=== PATIENT | male | born 1955 | race Caucasian/White ===

== ENCOUNTER 2016-08-28 10:08 | Emergency (ER) | payer BC ==
[~2016-08-28] VITALS: Ht 177.8 cm; Wt 78.0 kg
[2016-08-28 10:13] VITALS: BP 151/86; PULSE 91; RESP 14; TEMP 97.6; O2SAT 98
[2016-08-28] MEDS ORDERED: LOSA50TA PO (10:23)
[2016-08-28] MEDS ORDERED: LANTUS (10:23)
[2016-08-28] MEDS ORDERED: HYDR-3580 PO (10:23)
--- NOTE | 2016-08-28 11:00 | PD ---
HPI Chief Complaint: Musculoskeletal Complaint Time Seen by Provider: 10:46 Travel History International Travel<30 days: No Contact w/Intl Traveler<30days: No Traveled to known affect area: No History of Present Illness HPI This patient complains of pain in his right hip and right shoulder. 2 days ago he stumbled and fell and his garage and landed on the concrete floor. He struck his right hip and right shoulder. He's been ambulatory since. 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 No injury to head or neck. Symptoms severity is moderate. No alleviating factors. PFSH Past Medical History Diabetes: Yes Patient Takes Glucophage: No Hypertension: Yes Social History Alcohol Use: No Tobacco Use: No Substance Use: No Allergies-Medications (Allergen,Severity, Reaction): Coded Allergies: No Known Allergies (Unverified , 08/28/16) Reported Meds & Prescriptions Reported Meds & Active Scripts Active Reported Hydrocodone-Acetaminophen 7.5-325 mg Tab 1 Tab PO Q4H PRN Losartan (Losartan Potassium) 50 Mg Tab 50 Mg PO DAILY [Lantus 70/30] Unknown Dose Review of Systems General / Constitutional: No: Fever Eyes: No: Visual changes HENT: No: Headaches Cardiovascular: No: Chest Pain or Discomfort Respiratory: No: Shortness of Breath Gastrointestinal: No: Abdominal Pain Genitourinary: No: Dysuria Musculoskeletal: Positive: Arthralgias, Limited ROM, Pain Skin: No Rash Neurologic: No: Weakness Psychiatric: No: Depression Endocrine: No: Polydipsia Hematologic/Lymphatic: No: Easy Bruising Physical Exam Narrative GENERAL: Well-nourished, well-developed patient with shoulder and hip pain Right shoulder: Has tenderness at the acromioclavicular joint Is some tenderness to the musculature around the shoulder. Right arm neurovascularly intact NECK: Symmetrical appearance, midline trachea. No mass or crepitus. Thyroid without enlargement, tenderness, or mass. Psych: Normal mood and affect. Normal insight and judgment. SKIN: Focused skin assessment reveals no rash or ulcers. Skin is warm and dry. Palpation shows no induration or nodules. Right hip has good range of motion. There is a well-healed surgical scar. There is tenderness when palpating the sacral area without instability of the pelvis Data Data Last Documented VS Vital Signs Date Time Temp Pulse Resp B/P Pulse Ox O2 Delivery O2 Flow Rate FiO2 08/28/16 10:13 97.6 91 14 151/86 98 Room Air Orders Shoulder, Complete (>2vws) (08/28/16 ) Hip, Lat Only W Ap Pelvis (08/28/16 ) MDM Medical Decision Making Medical Screen Exam Complete: Yes Emergency Medical Condition: Yes Medical Record Reviewed: Yes Differential Diagnosis Pelvic fracture, hip dislocation, shoulder fracture Narrative Course I have reviewed the patient's electronic medical record. I reviewed his right shoulder x-rays which are normal I reviewed his right hip x-ray which is normal I reviewed his pelvis x-ray which is normal Patient has contusions but no fracture or dislocation. Stable for outpatient follow-up Diagnosis Primary Impression: Contusion, multiple sites Additional Instructions: The patient was advised to follow up with their physician and return if they worsen. Med/Other Pt SpecificInfo: Other Disposition: 01 DISCHARGE HOME Condition: Stable Chin Rivas MD Aug 28, 2016 11:00
--- NOTE | 2016-08-28 11:44 | RADHPO ---
EXAM DATE/TIME: 08/28/2016 11:25 [facility] COMPARISON: No previous studies available for comparison. INDICATIONS : Right shoulder pain after fall. MEDICAL HISTORY : None. SURGICAL HISTORY : Right shoulder scope ENCOUNTER: Initial ACUITY: 3 days PAIN SCORE: 10/10 LOCATION: Right shoulder FINDINGS: Multiple view examination of the right shoulder demonstrates no evidence of fracture or dislocation. The glenohumeral and acromioclavicular joints are maintained. There is normal range of motion betwe en internal and external rotation. Bony mineralization is normal. CONCLUSION: Negative for an acute process. Reji Lee MD FACR on August 28, 2016 at 11:41 Board Certified Radiologist. This report was verified electronically.
--- NOTE | 2016-08-28 11:45 | RADHPO ---
EXAM DATE/TIME: 08/28/2016 11:20 [facility] COMPARISON: No previous studies available for comparison. INDICATIONS : Right hip pain after fall. MEDICAL HISTORY : None. SURGICAL HISTORY : Right total hip replacement ENCOUNTER: Initial ACUITY: 3 days PAIN SCORE: 10/10 LOCATION: Right posterior hip FINDINGS: A lateral view of the right hip with AP pelvis was obtained. No definite fractures, dislocations, ly tic or sclerotic there is a right total hip arthroplasty in place. Upper thoracic components are in n ormal anatomic alignment. No monika-component lucency to suggest loosening. Osseous structures are inta ct without evidence for acute bony fracture. Multiple phleboliths are noted in the pelvis. Soft tissu es are otherwise unremarkable. CONCLUSION: 1. Right hip arthroplasty in anatomic alignment without evidence for hardware failure or acute bony f racture. Marcial Gonzalez MD on August 28, 2016 at 11:40 Board Certified Radiologist. This report was verified electronically.
== END 2016-08-28 12:21 | disposition home or self-care (01) ==
LOC: PHEFT 10:08
DX: T14.8 Other injury of unspecified body region (principal); M25.551 Pain in right hip; M25.511 Pain in right shoulder; W01.0XXA Fall on same level from slipping, tripping and stumbling without subsequent striking against object, initial encounter; Y92.008 Other place in unspecified non-institutional (private) residence as the place of occurrence of the external cause
CPT/HCPCS: 73030; 73501; 99284

== ENCOUNTER 2016-10-09 15:02 | Emergency (ER) | payer BC ==
[~2016-10-09] VITALS: Ht 177.8 cm; Wt 76.6 kg
[~2016-10-09 15:02] MED LIST: HYDR-3580 PO; LANTUS; LOSA50TA PO
[2016-10-09 15:08] VITALS: BP 147/80; PULSE 108; RESP 16; TEMP 97.5; O2SAT 98
[2016-10-09] MEDS ORDERED: AMIT150T PO (15:17)
[2016-10-09] MEDS ORDERED: NOVO7030P2 SQ (15:17)
--- NOTE | 2016-10-09 16:01 | PD ---
HPI Chief Complaint: Medication Refill Request Time Seen by Provider: 15:40 Travel History International Travel<30 days: No Contact w/Intl Traveler<30days: No Traveled to known affect area: No History of Present Illness HPI 61-year-old male presents to the emergency room requesting medication refill of Lortab. States he is in between pain management physicians and his next appointment is not for another 2 weeks. Patient is requesting medication to fill the gap between now and then. He called his pain management physician who recommended he come to the emergency room. 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 He has been on gabapentin and tried other methods of pain management without any relief in symptoms. States his pain is keeping him from sleeping and working. History Past Medical Histgory Tetanus Vaccination: < 5 Years Social History Alcohol Use: No Tobacco Use: No Allergies-Medications (Allergen,Severity, Reaction): Coded Allergies: No Known Allergies (Unverified , 10/09/16) Reported Meds & Prescriptions Reported Meds & Active Scripts Active Reported Amitriptyline (Amitriptyline HCl) 150 Mg Tab 150 Mg PO HS Novolin 70-30 Inj (Insulin Human Isoph/Insulin Regular) 1,000 Unit/10 Ml Vial 1 Units SQ DIRECTED Hydrocodone-Acetaminophen 7.5-325 mg Tab 1 Tab PO Q4H PRN Losartan (Losartan Potassium) 50 Mg Tab 50 Mg PO DAILY Data Data Last Documented VS Vital Signs Date Time Temp Pulse Resp B/P Pulse Ox O2 Delivery O2 Flow Rate FiO2 10/09/16 15:08 97.5 108 16 147/80 98 MDM Medical Screen Exam Complete: Yes Emergency Medical Condition: No Differential Diagnosis Medication refill Narrative Course 61-year-old male presents to the emergency room requesting Lortab refill. States he is in between pain management physicians and his next appointment is not for another 2 weeks. Patient is requesting medication to fill the gap between now and then. He called his pain management physician who recommended he come to the emergency room. Patient was given #120 (30 day supply) Lortab on 09/05/2016 and ran out of them 3 days ago. ors only shows prescriptions for Lortab in Jul, 2016, November,, October,, and September,. 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 He has been on gabapentin and tried other methods of pain management without any relief in symptoms. States his pain is keeping him from sleeping and working. He is ambulatory. Patient was informed that it is against emergency room policy to prescribe narcotic pain medication for chronic conditions. There are no urgent or emergent medical conditions at this time. A medical screening exam was performed: At the time of evaluation the presenting medical condition was determined not to be of an emergent nature. The patient was given the option of receiving additional care, but declined. Patient was given options for additional community resources from which to obtain care. The Patient Has Been advised to seek medical attention for their presenting complaint. The patient has been advised to return to the ER at any time if an emergent condition develops. Primary Impression: Encounter for medical screening examination Disposition: DISCHARGE HOME Condition: Stable Laurel Martínez Oct 09, 2016 16:01
== END 2016-10-09 15:54 | disposition left against medical advice (07) ==
LOC: PHEFT 15:02
DX: G89.29 Other chronic pain (principal); Z76.0 Encounter for issue of repeat prescription
CPT/HCPCS: 99281

== ENCOUNTER 2017-04-17 21:10 | Emergency (ER) | payer BC, OTHER ==
[~2017-04-17 21:10] MED LIST changes: +AMIT150T PO; -LANTUS; +NOVO7030P2 SQ
[2017-04-17 22:22] VITALS: BP 175/86; PULSE 94; RESP 18; O2SAT 100
[2017-04-17] MEDS ORDERED: HALOPERIDOL LACTATE 5 MG/ML AMP IM ONE (23:15)
[2017-04-17] MEDS ORDERED: LORazepam 2 MG/ML VIAL IM ONE (23:15)
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
[2017-04-18 02:20] LABS: AUTOMATED NEUTROPHIL # 5.5 TH/MM3 (1.8-7.7); BASOPHIL % 0.5 % (0.0-2.0); EOSINOPHIL # 0.4 TH/MM3 (0-0.4); EOSINOPHIL % 4.3 % (0.0-4.0); HEMATOCRIT 33.4 % (39.0-51.0); HEMOGLOBIN 11.5 GM/DL (13.0-17.0); LYMPH % 21.9 % (9.0-44.0); LYMPHOCYTE # 1.9 TH/MM3 (1.0-4.8); MEAN CORPUSCULAR HEMOGLOBIN 28.4 PG (27.0-34.0); MEAN CORPUSCULAR HGB CONC 34.3 % (32.0-36.0); MEAN PLATELET VOLUME 6.5 FL (7.0-11.0); MONO % 8.2 % (0.0-8.0); MONOCYTE # 0.7 TH/MM3 (0-0.9); NEUT % 65.1 % (16.0-70.0); PLATELET COUNT 348 TH/MM3 (150-450); RED BLOOD COUNT 4.03 MIL/MM3 (4.50-5.90); RED CELL DISTRIBUTION WIDTH 13.1 % (11.6-17.2); WHITE BLOOD COUNT 8.5 TH/MM3 (4.0-11.0)
[2017-04-18 02:52] LABS: ACETAMINOPHEN LESS THAN 2.0 MCG/ML (10.0-30.0); ALBUMIN 3.1 GM/DL (3.4-5.0); ALT (GPT) 14 U/L (12-78); AST (GOT) 18 U/L (15-37); BICARBONATE 27.9 MEQ/L (21.0-32.0); BLOOD UREA NITROGEN 18 MG/DL (7-18); CALCIUM 8.7 MG/DL (8.5-10.1); CHLORIDE 108 MEQ/L (98-107); CREATININE 0.95 MG/DL (0.60-1.30); GLOMERULAR FILTRATION RATE 81 ML/MIN (>89); GLUCOSE,RANDOM 76 MG/DL (74-106); SODIUM (NA) 141 MEQ/L (136-145)
[2017-04-18 02:58] LABS: ALKALINE PHOSPHATASE 103 U/L (45-117); TOTAL BILIRUBIN ADULT 0.3 MG/DL (0.2-1.0); TOTAL PROTEIN 7.3 GM/DL (6.4-8.2)
[2017-04-18 04:54] VITALS: BP 140/64; PULSE 85; RESP 17; TEMP 98.1; O2SAT 100
[2017-04-18 06:18] VITALS: BP 152/71; PULSE 81; RESP 18; O2SAT 97
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
--- NOTE | 2017-04-18 12:07 | PD ---
Physical Exam Time Seen by Provider: 12:[address] Jones has evaluated the patient, lifted Ross act and cleared the patient was discharged. His family is picking him up. Data Data Last Documented VS Vital Signs Date Time Temp Pulse Resp B/P (MAP) Pulse Ox O2 Delivery O2 Flow Rate FiO2 04/18/17 06:18 81 18 152/71 (98) 97 Room Air 04/18/17 04:54 98.1 Orders Orders Complete Blood Count With Diff (04/17/17 22:47) Comprehensive Metabolic Panel (04/17/17 22:47) Thyroid Stimulating Hormone (04/17/17 22:47) Psych Screen (04/17/17 22:47) Drug Screen, Random Urine (04/17/17 22:47) Alcohol (Ethanol) (04/17/17 22:47) Salicylates (Aspirin) (04/17/17 22:47) Tylenol (Acetaminophen) (04/17/17 22:47) Haloperidol Inj (Haldol Inj) (04/17/17 23:15) Lorazepam Inj (Ativan Inj) (04/17/17 23:15) Restraints Non-Violent MARY LOU.Q3H (04/17/17 23:11) Diet Regular Basic (04/18/17 Breakfast) Diet Regular Basic (04/18/17 Lunch) Labs Laboratory Tests Test 04/18/17 00:00 04/18/17 01:45 Urine Opiates Screen NEG Urine Barbiturates Screen NEG Urine Amphetamines Screen NEG Urine Benzodiazepines Screen NEG Urine Cocaine Screen NEG Urine Cannabinoids Screen POS White Blood Count 8.5 TH/MM3 Red Blood Count 4.03 MIL/MM3 Hemoglobin 11.5 GM/DL Hematocrit 33.4 % Mean Corpuscular Volume 83.0 FL Mean Corpuscular Hemoglobin 28.4 PG Mean Corpuscular Hemoglobin Concent 34.3 % Red Cell Distribution Width 13.1 % Platelet Count 348 TH/MM3 Mean Platelet Volume 6.5 FL Neutrophils (%) (Auto) 65.1 % Lymphocytes (%) (Auto) 21.9 % Monocytes (%) (Auto) 8.2 % Eosinophils (%) (Auto) 4.3 % Basophils (%) (Auto) 0.5 % Neutrophils # (Auto) 5.5 TH/MM3 Lymphocytes # (Auto) 1.9 TH/MM3 Monocytes # (Auto) 0.7 TH/MM3 Eosinophils # (Auto) 0.4 TH/MM3 Basophils # (Auto) 0.0 TH/MM3 CBC Comment DIFF FINAL Differential Comment Blood Urea Nitrogen 18 MG/DL Creatinine 0.95 MG/DL Random Glucose 76 MG/DL Total Protein 7.3 GM/DL Albumin 3.1 GM/DL Calcium Level 8.7 MG/DL Alkaline Phosphatase 103 U/L Aspartate Amino Transf (AST/SGOT) 18 U/L Alanine Aminotransferase (ALT/SGPT) 14 U/L Total Bilirubin 0.3 MG/DL Sodium Level 141 MEQ/L Potassium Level 3.5 MEQ/L Chloride Level 108 MEQ/L Carbon Dioxide Level 27.9 MEQ/L Anion Gap 5 MEQ/L Estimat Glomerular Filtration Rate 81 ML/MIN Thyroid Stimulating Hormone 3rd Gen 1.480 uIU/ML Salicylates Level LESS THAN 1.7 MG/DL Acetaminophen Level LESS THAN 2.0 MCG/ML Ethyl Alcohol Level LESS THAN 3 MG/DL MDM Supervised Visit with JUAN M: No Narrative Course Dr. Jones has evaluated the patient, lifted Vandana stock and cleared the patient was discharged. His family is picking him up. Patient contracts safety. Denies suicidal or homicidal ideations. Patient will be provided community resource packet to [facility] for follow-up. Has friends and family for support. Patient was medically cleared by alternate provider prior to psych screening. Patient has been evaluated by psychiatry and and is now cleared for discharge. Diagnosis Primary Impression: Adjustment disorder with mixed disturbance of emotions and conduct Referrals: [facility] (Out patient) [facility] Primary Care Physician Psychiatrist [facility] Patient Instructions: General Instructions, Mood Disorders (ED) Additional Instruction: Contract safety to your self and others Follow-up with psychiatry Follow-up with primary care provider Follow-up with Francisco Lucas Return to the emergency department immediately with worsening of symptoms Med/Other Pt SpecificInfo: No Change to Meds, No Meds Exist/No RX given Disposition: 01 DISCHARGE HOME Condition: Stable Candace Young Apr 18, 2017 12:07
== END 2017-04-18 12:28 | disposition home or self-care (01) ==
LOC: NEPJ 21:10
DX: F43.25 Adjustment disorder with mixed disturbance of emotions and conduct (principal); E11.40 Type 2 diabetes mellitus with diabetic neuropathy, unspecified; I10 Essential (primary) hypertension; Z98.84 Bariatric surgery status; Z79.899 Other long term (current) drug therapy
CPT/HCPCS: 80053; 80307; 84443; 85025; 96372; 99284; J1630; J2060

== ENCOUNTER 2017-12-08 18:07 | Observation (INO) ==
[2017-12-08] MEDS ORDERED: Sod Chloride 0.9% Inj 1,000 ML IV.CONT SCH (19:00)
[2017-12-08 19:26] LABS: Chloride 103 meq/L (98-107); Sodium 137 meq/L (136-145)
[2017-12-08 19:28] LABS: Calcium 8.8 mg/dL (8.5-10.1)
[2017-12-08 19:29] LABS: Anion Gap 10 meq/L (5-15); Blood Urea Nitrogen 22 mg/dL (7-18); Carbon Dioxide 23.7 meq/L (21.0-32.0); Glucose,Random 161 mg/dL (74-106)
[2017-12-08 19:31] LABS: Activated Partial Thrombo Time 29.9 sec (24.3-30.1); INR 1.1 Ratio; Prothrombin Time 11.3 sec (9.8-11.6)
[2017-12-08 19:32] LABS: Glomerular Filtration Rate 52 mL/min (>89)
[2017-12-08 19:35] LABS: Creatine Kinase 161 U/L (39-308)
[2017-12-08 19:41] LABS: Baso # (Auto) 0.1 th/mm3 (0.0-0.2); Baso % (Auto) 0.4 % (0.0-2.0); Eos # (Auto) 0.1 th/mm3 (0.0-0.4); Eos % (Auto) 0.7 % (0.0-4.0); Hematocrit 33.6 % (39.0-51.0); Hemoglobin 11.2 gm/dL (13.0-17.0); Lymph # (Auto) 1.1 th/mm3 (1.0-4.8); Mean Corpuscular HGB Conc 33.3 % (32.0-36.0); Mean Corpuscular Hemoglobin 27.7 pg (27.0-34.0); Mean Platelet Volume 7.3 fL (7.0-11.0); Mono # (Auto) 0.9 th/mm3 (0.0-0.9); Mono % (Auto) 6.7 % (0.0-8.0); Neut # (Auto) 10.9 th/mm3 (1.8-7.7); Neut % (Auto) 84.2 % (16.0-70.0); Platelet Count 321 th/mm3 (150-450); Red Blood Count 4.05 mil/mm3 (4.50-5.90); Red Cell Distribution Width 12.2 % (11.6-17.2); White Blood Count 13.1 th/mm3 (4.0-11.0)
--- NOTE | 2017-12-08 21:43 | ED ---
HPI General Chief complaint: Neuro Symptoms/Deficit Stated complaint: frequent fall X2days Time Seen by Provider: 12/08/17 18:24 Source: patient and family Mode of arrival: ambulatory Limitations: no limitations History of Present Illness HPI narrative: Patient is a 62-year-old male, past medical history significant for hypertension, diabetes, neuropathy with chronic pain to his left ankle, who presents with complaint of intermittent spells of slurred speech with confusion , and falls that then resolve. He states that over the last several days he has fallen more than 7 times oftentimes hitting his head. His last "spell" happened several hours ago. He has not had loss of consciousness. No neck pain nor new back pain. No nausea nor vomiting. No fever nor chills. No chest pain or dyspnea. No lightheadedness. Onset (ago): day(s) Severity: moderate Relieving factors: none Exacerbating factors: none Associated symptoms: confusion Treatments prior to arrival: none Related Data Home Medications Medication Instructions Recorded Confirmed Novolin 70/30 U-100 Insulin 12/08/17 amitriptyline 150 mg PO HS 12/08/17 12/08/17 gabapentin 300 mg PO HS 12/08/17 12/08/17 losartan-hydrochlorothiazide 50 mg PO DAILY 12/08/17 12/08/17 tramadol 50 mg PO BID 12/08/17 12/08/17 Allergies Allergy/AdvReac Type Severity Reaction Status Date / Time No Known Allergies Allergy Unverified 12/08/17 18:20 Review of Systems ROS: all other systems reviewed are negative [facility] Medical History Medical History Chronic pain (Acute) Diabetes mellitus (Acute) Hypertension (Acute) Neuropathic diabetic ulcer of foot (Acute) Neuropathic pain of both feet (Acute) Surgical History Surgical History History of bariatric surgery (Acute) History of hip surgery (Acute) Social History Social History Substance History: Active Abuse Second Hand Smoke Exposure: Yes Smoking Status: Never smoker How Often Do You Have a Drink Containing Alcohol: Never Recent Travel in [facility] within the Last 8 Weeks: No Recent Out of Country Travel within the Last 8 Weeks: No Substance Abuse Detail Marijuana: Substance Use Status: Active Route Used Substance Abuse: Inhalation Last Used: DAILY Reason for Use: Calm Down and Sleep Immunization History Tetanus Immunization: Unsure Hx Influenza Vaccine This Season: No Exam Narrative Exam Narrative: GENERAL: Well-appearing male in no acute distress SKIN: Focused skin assessment warm/dry. No rashes. HEAD: Atraumatic. Normocephalic. EYES: Pupils equal and round. No scleral icterus. No injection or drainage. ENT: No nasal bleeding or discharge. Mucous membranes pink and moist. NECK: Trachea midline. No JVD. CARDIOVASCULAR: Regular rate and rhythm. No murmur appreciated. Intact and equal peripheral pulses. RESPIRATORY: No accessory muscle use. Clear to auscultation. Breath sounds equal bilaterally. GASTROINTESTINAL: Abdomen soft, non-tender, nondistended. Hepatic and splenic margins not palpable. MUSCULOSKELETAL: No obvious deformities. No clubbing. No cyanosis. No edema. NEUROLOGICAL: Awake and alert. No obvious cranial nerve deficits. Motor within normal limits. Normal sensation. No ataxia. No pronator drift. Normal speech. PSYCHIATRIC: Appropriate mood and affect; insight and judgment normal. Course Initial Documented Vital Signs Temperature 99.6 F 12/08/17 18:20 Pulse Rate 100 H 12/08/17 18:20 Respiratory Rate 16 12/08/17 18:20 Blood Pressure 153/74 H 12/08/17 18:20 Pulse Oximetry 98 12/08/17 18:20 Last Documented Vital Signs Temperature 99.6 F 12/08/17 18:20 Pulse Rate 75 12/08/17 22:18 Respiratory Rate 16 12/08/17 22:18 Blood Pressure 158/67 H 12/08/17 22:18 Pulse Oximetry 96 12/08/17 22:18 NIH Stroke Scale NIH Stroke Scale Level of Consciousness: 0-Alert Orientation Questions: 0-Answers both correct Responds to Commands: 0-Both tasks correct Gaze Eye Movement: 0-Horizontal movement WNL Visual Brown: 0-No visual field defect Facial Movement: 0-Normal Motor Functions Arm LEFT: 0-No drift Motor Functions Arm RIGHT: 0-No drift Motor Functions Leg LEFT: 0-No drift Motor Functions Leg RIGHT: 0-No drift Limb Ataxia: 0-No ataxia Sensory Loss: 0-No sensory loss Best Language: 0-Normal Articulation: 0-Normal Extinction or Inattention Sensory: 0-Absent Total: 0 Medical Decision Making MDM Narrative Medical decision making narrative: Patient is a 8-year-old male who presents with complaint of intermittent slurred speech with confusion and frequent falls. He is not having any symptoms while in the emergency department and appears well. Labs reveal a creatinine of 1.4 which is increased from baseline but are otherwise unremarkable. CT head does not show any acute intracranial injury. I spoke with the patient and Dr. Boyle, hospitalist on-call, who agreed to an admission for a TIA workup. Medical Screen Exam Complete: Yes Emergency Medical Condition: Yes Differential Diagnosis Differential Diagnosis: Differential diagnosis includes but is not limited to vertebrobasilar syndrome, transient ischemic attack, dysrhythmia. Medical Records Medical records reviewed: Yes I reviewed the patient's medical records. Lab Data Lab results reviewed: Yes I reviewed the patient's lab results. Result diagrams: 12/08/17 19:05 12/08/17 19:05 Lab Results 12/08/17 12/08/17 12/08/17 Range/Units 18:39 19:05 19:05 CBC w Diff Auto diff final WBC 13.1 H (4.0-11.0) th/mm3 RBC 4.05 L (4.50-5.90) mil/mm3 Hgb 11.2 L (13.0-17.0) gm/dL Hct 33.6 L (39.0-51.0) % MCV 83.0 (80.0-100.0) fL MCH 27.7 (27.0-34.0) pg MCHC 33.3 (32.0-36.0) % RDW 12.2 (11.6-17.2) % Plt Count 321 (150-450) th/mm3 MPV 7.3 (7.0-11.0) fL Neut % (Auto) 84.2 H (16.0-70.0) % Lymph % (Auto) 8.0 L (9.0-44.0) % [place] % (Auto) 6.7 (0.0-8.0) % Eos % (Auto) 0.7 (0.0-4.0) % Baso % (Auto) 0.4 (0.0-2.0) % Neut # (Auto) 10.9 H (1.8-7.7) th/mm3 Lymph # (Auto) 1.1 (1.0-4.8) th/mm3 [place] # (Auto) 0.9 (0.0-0.9) th/mm3 Eos # (Auto) 0.1 (0.0-0.4) th/mm3 Baso # (Auto) 0.1 (0.0-0.2) th/mm3 WBC Differential . Differential Comment . PT 11.3 (9.8-11.6) sec INR 1.1 Ratio APTT 29.9 (24.3-30.1) sec Sodium (136-145) meq/L Potassium (3.5-5.1) meq/L Chloride (98-107) meq/L Carbon Dioxide (21.0-32.0) meq/L Anion Gap (5-15) meq/L BUN (7-18) mg/dL Creatinine (0.60-1.30) mg/dL Estimated GFR (>89) mL/min POC Glucose 177 H (68-110) mg/dl Random Glucose (74-106) mg/dL Calcium (8.5-10.1) mg/dL Total Creatine Kinase (39-308) U/L CK-MB (CK-2) (0.5-3.6) ng/mL Troponin I (0.02-0.05) ng/mL 12/08/17 12/08/17 Range/Units 19:05 19:31 CBC w Diff WBC (4.0-11.0) th/mm3 RBC (4.50-5.90) mil/mm3 Hgb (13.0-17.0) gm/dL Hct (39.0-51.0) % MCV (80.0-100.0) fL MCH (27.0-34.0) pg MCHC (32.0-36.0) % RDW (11.6-17.2) % Plt Count (150-450) th/mm3 MPV (7.0-11.0) fL Neut % (Auto) (16.0-70.0) % Lymph % (Auto) (9.0-44.0) % [place] % (Auto) (0.0-8.0) % Eos % (Auto) (0.0-4.0) % Baso % (Auto) (0.0-2.0) % Neut # (Auto) (1.8-7.7) th/mm3 Lymph # (Auto) (1.0-4.8) th/mm3 [place] # (Auto) (0.0-0.9) th/mm3 Eos # (Auto) (0.0-0.4) th/mm3 Baso # (Auto) (0.0-0.2) th/mm3 WBC Differential Differential Comment PT (9.8-11.6) sec INR Ratio APTT (24.3-30.1) sec Sodium 137 (136-145) meq/L Potassium 4.0 (3.5-5.1) meq/L Chloride 103 (98-107) meq/L Carbon Dioxide 23.7 (21.0-32.0) meq/L Anion Gap 10 (5-15) meq/L BUN 22 H (7-18) mg/dL Creatinine 1.40 H (0.60-1.30) mg/dL Estimated GFR 52 L (>89) mL/min POC Glucose 158 H (68-110) mg/dl Random Glucose 161 H (74-106) mg/dL Calcium 8.8 (8.5-10.1) mg/dL Total Creatine Kinase 161 (39-308) U/L CK-MB (CK-2) Less than 1.0 (0.5-3.6) ng/mL Troponin I Less than 0.02 L (0.02-0.05) ng/mL Imaging Data Attestation: I personally reviewed and interpreted this imaging study as follows : My impression: No acute intracranial process. Radiologist's impression: Head CT 12/08/17 18:52 CONCLUSION: 1. No acute intracranial abnormalities. . Ankle X-Ray 12/08/17 19:10 CONCLUSION: Remote healed fractures of the distal tibia and fibula. No acute fracture identified. ECG Data EKG Prior to Arrival: No Attestation: I personally reviewed and interpreted this ECG as follows: (Sinus rhythm at a rate of [address] or T-wave changes.) Discharge Plan Discharge Disposition Patient Disposition: 30 Still Patient Discharge Condition Condition: Stable Discharge Details Diagnosis: Transient cerebral ischemia Physicians Team ED Provider: Robyn Ross Primary Care Provider: UNKNOWN, Attending Provider: Karla Boyle Status ED Status: Admitted Observation Patient
[2017-12-08] MEDS ORDERED: Dextrose 50% in Water 50 ML Vial IV.PUSH PRN (21:51)
[2017-12-08 23:42] LABS: Bilirubin,Urine Negative (Negative); Clarity,Urine Clear (Clear); Color,Urine Yellow (Yellw/Straw); Glucose,Urine (UA) Negative (Negative); Leukocyte Esterase,Urine Negative (Negative); Nitrite,Urine Negative (Negative); Specific Gravity,Urine Less/Equal 1.005 (1.002-1.035); Urobilinogen,Urine 0.2 mg/dL (Less than 2)
[2017-12-08 23:46] LABS: RBC,Urine 0-3 /hpf (0-3); Squamous Epithelial Cell,Urine 0-5 /hpf (0-5); WBC,Urine 0-5 /hpf (0-5)
[2017-12-09] MEDS: Heparin - SQ 10,000 UNITS/ML Vial SQ SCH ×4 (00:17→21:30)
[2017-12-09] MEDS: Sod Chloride 0.9% Inj 1,000 ML IV.CONT SCH ×3 (00:21→19:02)
[2017-12-09] MEDS ORDERED: Gabapentin 300 MG Capsule PO SCH ×2 (00:45→12:00)
[2017-12-09] MEDS: Insulin NovoLOG Aspart Correctional Sugar Inj SQ SCH ×5 (03:08→21:27)
[2017-12-09 07:08] LABS: Calcium 8.6 mg/dL (8.5-10.1)
[2017-12-09 07:09] LABS: Carbon Dioxide 27.2 meq/L (21.0-32.0)
--- NOTE | 2017-12-09 07:42 | ECG ---
Date Performed: 12/08/2017 Time Performed: 18:34:59 PTAGE: 62 years EKG: Sinus rhythm NORMAL ECG NO PREVIOUS TRACING DOCTOR: Beronica Weber Interpretating Date/Time 12/09/2017 07:40:16
[2017-12-09] MEDS ORDERED: Aspirin 325 MG Tablet PO SCH (09:00)
[2017-12-09 10:19] LABS: Chol/HDL Ratio 2.98 Ratio; HDL Cholesterol 49.5 mg/dL (40.0-60.0)
[2017-12-09 10:52] LABS: Hemoglobin A1c 7.9 % (4.3-6.0)
[2017-12-09] MEDS: Gabapentin 300 MG Capsule PO SCH ×2 (12:04→17:30)
[2017-12-09] MEDS ORDERED: LOSARTAN HYDROCHLOROTHIAZIDE PO SCH (14:00)
[2017-12-09] MEDS ORDERED: Gadobutrol PF 7.5 MMOL/7.5 ML Vial (for RAD) IV.SIG ONE (14:30)
[2017-12-09 20:39] LABS: C-Reactive Protein 17.7 mg/dL (0.00-0.30)
[2017-12-10] MEDS: Insulin NovoLOG Aspart Correctional Sugar Inj SQ SCH ×5 (03:25→21:40)
[2017-12-10 06:32] LABS: Potassium 3.8 meq/L (3.5-5.1)
[2017-12-10 06:33] LABS: Baso % (Auto) 0.4 % (0.0-2.0); Eos # (Auto) 0.4 th/mm3 (0.0-0.4); Eos % (Auto) 4.3 % (0.0-4.0); Hematocrit 30.2 % (39.0-51.0); Hemoglobin 9.9 gm/dL (13.0-17.0); Lymph # (Auto) 1.5 th/mm3 (1.0-4.8); Lymph % (Auto) 17.2 % (9.0-44.0); Mean Corpuscular HGB Conc 32.9 % (32.0-36.0); Mean Corpuscular Hemoglobin 27.5 pg (27.0-34.0); Mean Corpuscular Volume 83.5 fL (80.0-100.0); Mean Platelet Volume 6.9 fL (7.0-11.0); Mono # (Auto) 0.8 th/mm3 (0.0-0.9); Mono % (Auto) 9.1 % (0.0-8.0); Neut # (Auto) 5.9 th/mm3 (1.8-7.7); Platelet Count 374 th/mm3 (150-450); Red Blood Count 3.61 mil/mm3 (4.50-5.90); Red Cell Distribution Width 12.2 % (11.6-17.2); White Blood Count 8.6 th/mm3 (4.0-11.0)
[2017-12-10] MEDS: Heparin - SQ 10,000 UNITS/ML Vial SQ SCH ×3 (06:34→21:37)
[2017-12-10 06:35] LABS: Calcium 8.3 mg/dL (8.5-10.1)
[2017-12-10 06:36] LABS: Carbon Dioxide 28.4 meq/L (21.0-32.0); Magnesium 1.7 mg/dL (1.5-2.5)
[2017-12-10] MEDS: Gabapentin 300 MG Capsule PO SCH ×3 (09:00→17:21)
[2017-12-10] MEDS ORDERED: Azithromycin 250 MG Tablet PO ONE (10:58)
[2017-12-10] MEDS ORDERED: RESP: Albuterol Concentrated 2.5 MG/0.5 ML Neb NEB PRN (11:02)
--- NOTE | 2017-12-10 12:19 | ECHRPT ---
Indication: CVA/TIA CONCLUSIONS The left ventricular systolic function is normal with an estimated ejection fraction in the range of 55-60%. Trace mitral valve regurgitation. Unable to determine if bileaflet or trileaflet aortic valve. No aortic valve stenosis or regurgitati on. There is trace tricuspid valve regurgitation. BP: / HR: Rhythm: Sinus MEASUREMENTS (Male / Female) Normal Values Technical Quality:Fair 2D ECHO LV Diastolic Diameter PLAX 4.3 cm 4.2 - 5.9 / 3.9 - 5.3 cm LV Systolic Diameter PLAX 3.1 cm IVS Diastolic Thickness 1.1 cm 0.6 - 1.0 / 0.6 - 0.9 cm LVPW Diastolic Thickness 1.1 cm 0.6 - 1.0 / 0.6 - 0.9 cm LV Relative Wall Thickness 0.5 LVOT Diameter 2.0 cm M-MODE Aortic Root Diameter MM 3.2 cm LA Systolic Diameter MM 3.0 cm LA Ao Ratio MM 0.9 AV Cusp Separation MM 2.2 cm DOPPLER AV Peak Velocity 137.0 cm/s AV Peak Gradient 7.5 mmHg LVOT Peak Velocity 111.0 cm/s LVOT Peak Gradient 4.9 mmHg AV Area Cont Eq pk 2.5 cm Mitral E Point Velocity 115.0 cm/s Mitral A Point Velocity 107.0 cm/s Mitral E to A Ratio 1.1 LV E' Lateral Velocity 8.8 cm/s Mitral E to LV E' Lateral Ratio 13.1 LV E' Septal Velocity 5.1 cm/s Mitral E to LV E' Septal Ratio 22.7 TR Peak Velocity 209.0 cm/s TR Peak Gradient 17.5 mmHg Right Atrial Pressure 10.0 mmHg Pulmonary Artery Systolic Pressu 27.5 mmHg Right Ventricular Systolic Press 27.5 mmHg PV Peak Velocity 133.0 cm/s PV Peak Gradient 7.1 mmHg FINDINGS LEFT VENTRICLE The left ventricular systolic function is normal with an estimated ejection fraction in the range of 55-60%. Wall thickness is normal. Normal left ventricular size. RIGHT VENTRICLE Grossly normal right ventricular size and systolic function. LEFT ATRIUM The left atrial size is normal. RIGHT ATRIUM The right atrial size is normal. ATRIAL SEPTUM Normal atrial septal thickness AORTA The aortic root and proximal ascending aorta are normal in size on limited imaging. MITRAL VALVE Structurally normal mitral valve. Mild mitral annular calcification. No mitral valve stenosis. Trace mitral valve regurgitation. AORTIC VALVE Unable to determine if bileaflet or trileaflet. No aortic valve stenosis or regurgitation. Aortic valve sclerosis is present. TRICUSPID VALVE There is trace tricuspid valve regurgitation. The estimated pulmonary arterial pressure is 27.5 mmHg. PULMONARY VALVE No pulmonary valve regurgitation or stenosis. VESSELS The inferior vena cava is normal in size. PERICARDIUM No pericardial effusion. Reynaldo Stephens DO (Electronically Signed) Final Date:10 December 2017 12:18
[2017-12-10] MEDS: Butalbital/APAP/Caff 50/325/40 MG Tablet PO PRN ×3 (12:35→21:40)
[2017-12-10] MEDS: Loratadine 10 MG Tablet PO SCH (12:38)
[2017-12-11] MEDS: Insulin NovoLOG Aspart Correctional Sugar Inj SQ SCH ×3 (03:36→11:40)
[2017-12-11] MEDS: Heparin - SQ 10,000 UNITS/ML Vial SQ SCH ×2 (05:01→14:53)
[2017-12-11] MEDS: Butalbital/APAP/Caff 50/325/40 MG Tablet PO PRN ×2 (05:05→14:16)
[2017-12-11] MEDS ORDERED: Azithromycin 250 MG Tablet PO SCH (09:00)
[2017-12-11] MEDS: Gabapentin 300 MG Capsule PO SCH ×2 (09:50→14:11)
[2017-12-11] MEDS: Loratadine 10 MG Tablet PO SCH ×2 (09:58→10:01)
[2017-12-11] MEDS ORDERED: predniSONE 5 MG Tablet PO SCH (11:00)
[2017-12-13 03:50] LABS: DS DNA Ab (Crithidia) NEGATIVE (NEGATIVE)
== END 2017-12-11 17:44 | disposition home or self-care (01) ==
LOC: PHEDA 18:07 → PHED 18:07 → PH3 23:40
PROVIDERS: ADMIT Internal Medicine; ATTEND Internal Medicine